=== PATIENT | female | born 1985 | race Asian ===

== ENCOUNTER 2018-12-23 19:13 | Emergency (ER) | payer BC, OTHER ==
[~2018-12-23] VITALS: Ht 152.4 cm; Wt 78.2 kg
[~2018-12-23 19:13] MED LIST: AMOX500C2 PO; IBUP-1542 PO
[2018-12-23 20:20] VITALS: Ht 152.4 cm; Wt 78.2 kg
[2018-12-23] MEDS ORDERED: IBUPROFEN 600 MG TAB PO ONE (21:30)
[2018-12-23 23:25] VITALS: BP 121/69; PULSE 81; RESP 20
== END 2018-12-23 23:30 | disposition home or self-care (01) ==
LOC: FTE 19:13
DX: H66.93 Otitis media, unspecified, bilateral (principal)
CPT/HCPCS: 70450; 81025